=== PATIENT | female | born 1985 | race Two or more races ===

== ENCOUNTER 2024-07-22 18:15 | Emergency (ER) | payer OTHER ==
[~2024-07-22] VITALS: Ht 167.6 cm; Wt 115.7 kg
[2024-07-22] MEDS ORDERED: LEVO-T88 MCG PO (18:31)
[2024-07-22] MEDS ORDERED: PROPOFOL 10,000 MCG/ML VIAL ONE (18:55)
[2024-07-22] MEDS ORDERED: PROPOFOL 10,000 MCG/ML VIAL IV PUSH ONE (19:00)
[2024-07-22] MEDS ORDERED: ACETAMINOPHEN WITH CODEINE 1 UDTAB TABLET PO ONE (19:00)
== END 2024-07-22 23:19 | disposition home or self-care (01) ==
LOC: EDBD 21:05 → ER 21:05
DX: S43.084A Other dislocation of right shoulder joint, initial encounter (principal); X58.XXXA Exposure to other specified factors, initial encounter; Y93.89 Activity, other specified; Y92.89 Other specified places as the place of occurrence of the external cause; Y99.9 Unspecified external cause status; E03.9 Hypothyroidism, unspecified; Z88.6 Allergy status to analgesic agent; Z88.0 Allergy status to penicillin; Z88.2 Allergy status to sulfonamides